=== PATIENT | male | born 1965 | race Caucasian/White ===

== ENCOUNTER → 2016-09-08 | Day surgery (SDC) | payer BC ==
[2016-09-06 17:20] VITALS: BMI 29.9
[~2016-09-08] MED LIST: BUPIVACAIN-EPI 0.25%-1:200,000 30 ML VIAL SQ ONE; DEXAMETHASONE SOD PHOSPHATE 10 MG/ML 1 ML VIAL IV ONE; FAMOTIDINE 20 MG/2 ML VIAL IV PRN; GLYCOPYRROLATE 0.2 MG/ML 2 ML VIAL ONE; HEPARIN SODIUM,PORCINE 5,000 UNIT/ML 1 ML VIAL SQ ONE; HYDROcodone/APAP 7.5-325MG 1 EACH TAB PO ONE; KETOROLAC 30 MG/ML 1 ML VIAL ONE; LACTATED RINGERS 1,000 ML IV ONE; LACTATED RINGERS 1,000 ML IV SCH; LIDOCAINE 1% 20 ML VIAL (10MG/ML) FOR IV START INTRADERMA PRN; LIDOCAINE 1% INJ 10MG/ML (20 ML MDV) ONE; MIDAZOLAM 2 MG/2 ML VIAL IV PRN; MIDAZOLAM 2 MG/2 ML VIAL ONE; NEOSTIGMINE 1 MG/ML 10 ML VIAL ONE; ONDANSETRON 4 MG/2 ML VIAL IVP ONE; PROPOFOL 10 MG/ML 20 ML VIAL IV ONE; ROCURONIUM BROMIDE 10 MG/ML 10 ML VIAL IV ONE; SCOPOLAMINE 1.5MG/72HR PATCH TRANSDERM ONE; SUCCINYLCHOLINE CHLORIDE 100 MG/5 ML SYR IV ONE; ceFAZolin 2 GM in SODIUM CHLORIDE 0.9% 100 ML IVPB ONE; fentaNYL (PF) 50 MCG/ML 2 ML AMP ONE
[2016-09-08 14:27] LABS: Glucose,Whole Blood 130 mg/dL (75-99)
--- NOTE | 2016-09-08 15:31 | P.GSHP ---
History of Present Illness H&P Date: 09/08/16 Chief Complaint: Incarcerated ventral hernia This a 51-year-old male referred from Dr. Hyde. Patient does today for laparoscopic robotic-assisted repair of incarcerated ventral hernia. - Constitutional Constitutional: Reports as per HPI Past Medical History Past Medical History: Diabetes Mellitus, Eye Disorder, Hyperlipidemia, Sleep Apnea/CPAP/BIPAP Additional Past Medical History / Comment(s): PRE-GLAUCOMA. HX DIVERTICULITIS. HX FX RT TIBIA. VENTRAL HERNIA CURRENTLY. USES CPAP. History of Any Multi-Drug Resistant Organisms: None Reported Past Surgical History: Hernia Repair Additional Past Surgical History / Comment(s): [facility] HERNIA. Past Anesthesia/Blood Transfusion Reactions: No Reported Reaction Past Psychological History: No Psychological Hx Reported Smoking Status: Never smoker Past Alcohol Use History: Rare Past Drug Use History: None Reported - Past Family History Mother Family Medical History: No Reported History Medications and Allergies Home Medications Medication Instructions Recorded Confirmed Type Insulin Degludec [Tresiba 56 unit SQ HS 01/21/16 09/08/16 History Flextouch U-200] Atorvastatin [Lipitor] 40 mg PO DAILY 09/06/16 09/08/16 History Eye Drop (Unsure Of Name) 1 drop BOTH EYES HS 09/06/16 History Allergies Allergy/AdvReac Type Severity Reaction Status Date / Time No Known Allergies Allergy Verified 09/06/16 17:02 Surgical - Exam Vital Signs Temp Pulse Resp BP Pulse Ox 98.2 F 80 16 125/70 97 09/08/16 14:12 09/08/16 14:12 09/08/16 14:12 09/08/16 14:12 09/08/16 14:12 - General well developed, no distress - Eyes PERRL - ENT normal pinna - Neck no masses - Respiratory normal expansion - Cardiovascular Rhythm: regular - Abdomen 5 cm incarcerated ventral hernia located above the umbilicus. Abdomen: soft, non tender Results - Labs Abnormal Lab Results - Last 24 Hours (Table) 09/08/16 Range/Units 14:18 POC Glucose (mg/dL) 130 H (75-99) mg/dL Assessment and Plan Plan: Incarcerated ventral hernia. We'll perform laparoscopic robotic assistance repair.
[2016-09-08 17:13] VITALS: TEMP 97.9
[2016-09-08] MEDS: HYDROmorphone 1 MG/ML 1 ML SYRINGE IVP PRN ×4 (17:25→18:07)
[2016-09-08 17:42] LABS: Glucose,Whole Blood 213 mg/dL (75-99)
[2016-09-08 18:18] VITALS: RESP 18
[2016-09-08 19:31] VITALS: BP 130/80; PULSE 72
--- NOTE | 2016-09-10 15:29 | P.OP ---
Date of Procedure: 09/10/16 Preoperative Diagnosis: Incarcerated ventral hernia Postoperative Diagnosis: Incarcerated ventral hernia Procedure(s) Performed: L laparoscopic robotic-assisted repair of incarcerated ventral hernia Partial greater omentectomy Anesthesia: ILEANA Surgeon: Andrez Rueda Estimated Blood Loss (ml): 5 Pathology: other (Omentum) Condition: stable Disposition: PACU Description of Procedure: Patient's placed on the operative table in supine position. He received general anesthesia. His abdomen was prepped and draped usual fashion. The abdomen was entered with a 5 mm blade less trocar in the left upper quadrant using direct visualization. The abdomen was then insufflated after adequate insufflation a 8 mm robotic trochars placed left lower quadrant and then a 12 mm trochars placed in the left lateral position and the original 5 mm trocar was exchanged for an 8 mm robotic trocar. The patient's placed the left side up position. He was then docked to the da Tashia robot. The incarcerated hernia was seen. As above the umbilicus. Using a hook cautery the incarcerated omentum was withdrawn from the hernia. A portion of nonviable omentum was dissected free. At this point using the OV lock suture of the actual defect was closed and then a piece of ventral light ST mesh was secured with 20 the lock suture to buttress the repair. The patient was then undocked the robot. The needles were retrieved. The fascia of the 12 mm trocar site was closed using 0 Vicryl suture. Skin was closed with 3-0 Vicryl suture. Skin was closed with Dermabond. Patient top she will was sent to recovery in stable condition.
== END ==
LOC: OR 13:59
PROVIDERS: ATTEND Surgery
DX: K43.6 Other and unspecified ventral hernia with obstruction, without gangrene (principal); E11.9 Type 2 diabetes mellitus without complications; E78.5 Hyperlipidemia, unspecified; G47.30 Sleep apnea, unspecified; H40.009 Preglaucoma, unspecified, unspecified eye; Z79.4 Long term (current) use of insulin; Z79.899 Other long term (current) drug therapy
CPT/HCPCS: 49653; C1781; J2250; J1644; J1100; J2710; J0690; J2405; J3010; J1885; J1170; J0330; J2704; 88305

== ENCOUNTER → 2016-10-21 | Outpatient (CLI) | payer BC ==
--- NOTE | 2016-10-21 20:07 | PN ---
51-year-old gentleman who has been followed in the sleep center for treatment of obstructive sleep apnea-hypopnea syndrome. Recently patient had diagnostic sleep study which was done as a home sleep apnea test and CPAP titration. I discussed results of sleep studies with the patient in detail. Diagnostic sleep study showed apnea-hypopnea index 33.1 with oxygen desaturation to 83%. Recommended CPAP pressure by results of CPAP titration was 11 cm of water. Patient started to use his CPAP equipment without any significant problem related to mask or machine, feels much better during the sleep and during the day. I checked his CPAP unit which he brought with him. CPAP pressure is 11 cm water. Usage is 28 out of 30 nights for more than 4 hours, which is great. Leak is up to 35 L/min, which is borderline. Apnea-hypopnea index reading is 2.9, which is good numbers. [place] Sleepiness Scale today is one, RR. Patient sometimes opens his mouth. He is nasal pillow mask. MEDICATIONS: 1. Insulin. 2. Atorvastatin. During physical exam, the patient in no distress. BP 117/68, HR 95, RR is 18. Weight 257.4. Temperature 97.9. Oxygen saturation at room air 95%. HEENT: PERRLA, EOMI oropharynx low position of soft palate. Neck: Supple. No JVD. Thyroid is not palpable. LUNGS: Clear to percussion and to auscultation. Good air exchange. No wheezing or rhonchi. HEART: S1, S2 regular. No murmurs, gallops, or rubs. ABDOMEN: Obese. Soft and nontender. Bowel sounds are present. No organomegaly appreciated. EXTREMITIES: No clubbing or cyanosis. PROGRAMS MANAGER: Awake, alert, and oriented x3. Cranial nerves 2 to 7 intact. There is no fasciculation or atrophy noted. No focal deficits observed. IMPRESSION: 1. Severe obstructive sleep apnea-hypopnea syndrome on control with CPAP at 11 cm of water. Patient demonstrated great compliance with treatment, benefiting from treatment. 2. Obesity. 3. Diabetes mellitus. 4. Hyperlipidemia. 5. Status post surgical treatment of umbilical hernia. PLAN: 1. Continue treatment with CPAP every night. 2. Chin strap. 3. Losing weight. 4. Sleep hygiene with regular time in bed for at least 8 hours. 5. No driving if feeling any sleepiness. 6. Follow-up visit in 10 months or earlier if patient has any problems. Thank you very much for allowing me to participate in the management of your patient. Sincerely, Markel Cote MD, PhD, FAASM. Diplomat of [employer], Sleep Medicine Board by [employer] Officer of [facility] [place]
== END | disposition home or self-care (01) ==
LOC: SLEEP 15:02
PROVIDERS: ATTEND Internal Medicine
DX: G47.33 Obstructive sleep apnea (adult) (pediatric) (principal); E66.9 Obesity, unspecified; E11.9 Type 2 diabetes mellitus without complications; E78.5 Hyperlipidemia, unspecified; Z79.4 Long term (current) use of insulin; Z98.890 Other specified postprocedural states

== ENCOUNTER → 2017-11-03 | Outpatient (CLI) | payer BC ==
--- NOTE | 2017-11-03 12:33 | PN ---
PROGRESS NOTE DATE OF SERVICE: 11/03/2017 A 52-year-old gentleman who has been followed in the Sleep Center for treatment of obstructive sleep apnea-hypopnea syndrome. Patient successfully continued to use his CPAP equipment every night without significant problems. No snoring with the machine. [place] Sleepiness Scale is only 3. I checked his CPAP unit. Usage is 100% of the nights and 27 nights out of 30 nights more than 4 hours. Average usage 6.0 hours. Pressure is 11 cm of water. Apnea- hypopnea index for the last month only 2.1, which is perfect. Leak is borderline 36 L/minute. No dry mouth in the morning. MEDICATIONS: Tresiba, atorvastatin, metformin. PHYSICAL EXAM: Patient in no distress. BP 124/70, HR 96, RR 18, height 62-1/2, weight 261.4. Patient increased his weight of 4 pounds since previous visit. Temperature 98.5, oxygen saturation at room air 95%. Body mass index 33.0. OROPHARYNX: Low position of soft palate. ABDOMEN: Slightly obese. Neck Supple, no JVD. Thyroid is not palpable. LUNGS Clear to percussion and to auscultation. Good air exchange. No wheezing or rhonchi. HEART S1, S2 regular. No murmurs, gallops, or rubs. EXTREMITIES No clubbing or cyanosis. FOURDRINIER OPERATOR Awake, alert, and oriented X3. Cranial nerves 2 to 7 intact. There is no fasciculation or atrophy. noted. No focal deficits observed. IMPRESSION: 1. Obstructive sleep apnea-hypopnea syndrome on control with CPAP at 11 cm of water. Patient demonstrated great compliance with treatment, benefitting from treatment. 2. Mild obesity, body mass index 33.0. Patient increased his weight several pounds since previous visit. 3. Hyperlipidemia. 4. Diabetes mellitus. 5. Status post surgery in the past for umbilical hernia. PLAN: 1. Patient will continue to use his CPAP equipment every night for the whole night. 2. Prescription for all necessary CPAP supplies including mask, tube, filters. I encouraged patient to get new nasal pillow mask as much as often as possible following insurance guidelines. 3. Losing weight. 4. No driving if feeling any sleepiness. 5. Followup visit in 1 year or earlier if patient has any problems. Thank you very much for allowing me to participate in the management of your patient. Sincerely, Markel Cote MD, PhD, FAASM Diplomat of [employer] General Administrator of [facility] [place] STEFFANIE / LUIS E: [phone] /
== END | disposition home or self-care (01) ==
LOC: SLEEP 11:18
PROVIDERS: ATTEND Internal Medicine
DX: G47.33 Obstructive sleep apnea (adult) (pediatric) (principal); E66.9 Obesity, unspecified; E78.5 Hyperlipidemia, unspecified; E11.9 Type 2 diabetes mellitus without complications; Z99.89 Dependence on other enabling machines and devices; Z68.33 Body mass index [BMI] 33.0-33.9, adult

== ENCOUNTER 2018-11-17 07:00 | Day surgery (SDC) | payer BC ==
[2018-11-15 08:44] VITALS: BMI 31.2
[~2018-11-17 07:00] MED LIST changes: -BUPIVACAIN-EPI 0.25%-1:200,000 30 ML VIAL SQ ONE; -DEXAMETHASONE SOD PHOSPHATE 10 MG/ML 1 ML VIAL IV ONE; -FAMOTIDINE 20 MG/2 ML VIAL IV PRN; -GLYCOPYRROLATE 0.2 MG/ML 2 ML VIAL ONE; -HEPARIN SODIUM,PORCINE 5,000 UNIT/ML 1 ML VIAL SQ ONE; -HYDROcodone/APAP 7.5-325MG 1 EACH TAB PO ONE; -KETOROLAC 30 MG/ML 1 ML VIAL ONE; -LACTATED RINGERS 1,000 ML IV ONE; -LIDOCAINE 1% 20 ML VIAL (10MG/ML) FOR IV START INTRADERMA PRN; -LIDOCAINE 1% INJ 10MG/ML (20 ML MDV) ONE; -MIDAZOLAM 2 MG/2 ML VIAL IV PRN; -MIDAZOLAM 2 MG/2 ML VIAL ONE; -NEOSTIGMINE 1 MG/ML 10 ML VIAL ONE; -ONDANSETRON 4 MG/2 ML VIAL IVP ONE; -PROPOFOL 10 MG/ML 20 ML VIAL IV ONE; -ROCURONIUM BROMIDE 10 MG/ML 10 ML VIAL IV ONE; -SCOPOLAMINE 1.5MG/72HR PATCH TRANSDERM ONE; -SUCCINYLCHOLINE CHLORIDE 100 MG/5 ML SYR IV ONE; -ceFAZolin 2 GM in SODIUM CHLORIDE 0.9% 100 ML IVPB ONE; -fentaNYL (PF) 50 MCG/ML 2 ML AMP ONE
[2018-11-17 07:23] VITALS: TEMP 98.3
[2018-11-17 07:36] LABS: Glucose,Whole Blood 142 mg/dL (75-99)
[2018-11-17] MEDS ORDERED: KETOROLAC 30 MG/ML 1 ML VIAL ONE (07:37)
[2018-11-17] MEDS ORDERED: PROPOFOL 10 MG/ML 20 ML VIAL IV ONE (07:37)
--- NOTE | 2018-11-17 07:42 | P.GSHP ---
History of Present Illness H&P Date: 11/17/18 Chief Complaint: Colon cancer screening Patient today for colonoscopy. Last colonoscopy 7-8 years ago. No bowel complaints. History of diverticulitis in the past. No family history of colon cancer. Past Medical History Past Medical History: Diabetes Mellitus, Eye Disorder, Hyperlipidemia, Hypertension, Sleep Apnea/CPAP/BIPAP Additional Past Medical History / Comment(s): PRE-GLAUCOMA. HX DIVERTICULITIS. HX FX RT TIBIA. VENTRAL HERNIA CURRENTLY. USES CPAP. History of Any Multi-Drug Resistant Organisms: None Reported Past Surgical History: Hernia Repair Additional Past Surgical History / Comment(s): [facility] HERNIA. COLONOSCOPY Past Anesthesia/Blood Transfusion Reactions: No Reported Reaction Smoking Status: Never smoker - Past Family History Mother Family Medical History: No Reported History Medications and Allergies Home Medications Medication Instructions Recorded Confirmed Type Atorvastatin [Lipitor] 40 mg PO HS 09/06/16 11/17/18 History Dulaglutide [Trulicity] 0.75 mg SQ ROBERTSON 11/15/18 11/17/18 History Insulin Glargine,Hum.rec.anlog 65 unit SQ HS 11/15/18 11/17/18 History [Toujeo Max Solostar] Lisinopril [Zestril] 2.5 mg PO HS 11/15/18 11/17/18 History metFORMIN HCL [Glucophage Xr] 1,000 mg PO AC-SUPPER 11/15/18 11/17/18 History Allergies Allergy/AdvReac Type Severity Reaction Status Date / Time No Known Allergies Allergy Verified 11/15/18 08:38 Surgical - Exam Vital Signs Temp Pulse Resp BP Pulse Ox 98.3 F 89 20 133/84 96 11/17/18 07:10 11/17/18 07:10 11/17/18 07:10 11/17/18 07:10 11/17/18 07:10 Physical exam: General: Well-developed, well-nourished HEENT: Normocephalic, sclerae nonicteric Abdomen: Nontender, nondistended Extremities: No edema Neuro: Alert and oriented Results - Labs Abnormal Lab Results - Last 24 Hours (Table) 11/17/18 Range/Units 07:20 POC Glucose (mg/dL) 142 H (75-99) mg/dL Assessment and Plan (1) Colon cancer screening Narrative/Plan: Will proceed with colonoscopy at this time Current Visit: Yes Status: Acute Code(s): Z12.11 - ENCOUNTER FOR SCREENING FOR MALIGNANT NEOPLASM OF COLON SNOMED Code(s): 398435190
[2018-11-17] MEDS ORDERED: SODIUM CHLORIDE 0.9% 500 ML 500 ML IV ONE (08:19)
--- NOTE | 2018-11-17 08:20 | P.PCN ---
Date of Procedure: 11/17/18 Procedure(s) Performed: PREOPERATIVE DIAGNOSIS: Colon cancer screening POSTOPERATIVE DIAGNOSIS: Diverticulosis, hypertrophied anal papilla PROCEDURE: Colonoscopy and anoscopy with snare removal of hypertrophied anal papilla ANESTHESIA: MAC SURGEON: Geraldo Christensen M.D. SPECIMENS: Hypertrophied anal papilla ENDOSCOPIC PROCEDURE: The patient was placed on the endoscopy table in the left decubitus position. The Olympus colonoscope was inserted into the anus and passed under direct visualization to the base of the cecum. The appendiceal orifice was visualized. From that point the scope was slowly withdrawn inspecting all surfaces carefully. There were no neoplastic inflammatory or polypoid lesions throughout the cecum, ascending, transverse, or descending colon. The sigmoid colon there was extensive diverticulosis present. One of the diverticulum initially had the appearance of a polyp right at the mouth of the diverticulum. The snare with cautery was used to try to obtain a sample of this however this appeared to be simply a small piece of what likely represented granulation tissue. No specimen was identified in our container. The remainder of the sigmoid and rectum appeared normal. Just at the junction with the anus there was what appeared to represent a large hypertrophied anal papilla. This was removed using the snare with cautery technique. The anoscope was utilized for this portion of the procedure. No additional abnormalities were identified on rectal examination. The patient was taken to the recovery room in stable condition per anesthesia guidelines. RECOMMENDATIONS: Await biopsy results. Continue diverticular diet. Follow-up colonoscopy in 5-10 years.
[2018-11-17 08:26] VITALS: RESP 16
[2018-11-17 08:54] VITALS: BP 107/70; PULSE 74
== END 2018-11-17 09:14 | disposition home or self-care (01) ==
LOC: ORWHC2ENDO 07:00
PROVIDERS: ATTEND Surgery
DX: Z12.11 Encounter for screening for malignant neoplasm of colon (principal); K57.30 Diverticulosis of large intestine without perforation or abscess without bleeding; K62.89 Other specified diseases of anus and rectum; K62.0 Anal polyp; I10 Essential (primary) hypertension; E78.5 Hyperlipidemia, unspecified; E11.9 Type 2 diabetes mellitus without complications; H40.009 Preglaucoma, unspecified, unspecified eye; G47.33 Obstructive sleep apnea (adult) (pediatric); Z99.89 Dependence on other enabling machines and devices; Z79.4 Long term (current) use of insulin; Z79.899 Other long term (current) drug therapy
CPT/HCPCS: 45385; 88304; J1885; J2704

== ENCOUNTER → 2019-01-16 | Outpatient (CLI) | payer BC ==
--- NOTE | 2019-01-16 11:45 | XR ---
EXAMINATION TYPE: XR shoulder complete RT DATE OF EXAM: 01/16/2019 CLINICAL HISTORY: Nontraumatic right shoulder injury TECHNIQUE: Three views of the right shoulder are obtained. COMPARISON: None. FINDINGS: There is no acute fracture/dislocation evident in the right shoulder. The acromioclavicul ar and glenohumeral joint spaces appear within normal limits. Small osseous cyst is seen of the humer al head with punctate calcifications at the insertion of the rotator cuff. The visualized ribs are in tact and unremarkable. IMPRESSION: There is no acute fracture or dislocation in the right shoulder. Calcific tendinosis of the insertional fibers of the rotator cuff.
--- NOTE | 2019-01-16 11:48 | XR ---
EXAMINATION TYPE: XR cervical spine limited DATE OF EXAM: 01/16/2019 TECHNIQUE: Frontal, lateral and open mouth view of the cervical spine are obtained. HISTORY: M54.12 Radiculopathy COMPARISON: None FINDINGS: The cervical spine is visualized in its entirety from C1 thru the top of T1 level, it is s atisfactory in alignment without evidence of acute fracture or dislocation. There is straightening of usual cervical lordosis. Small anterior osteophytes are seen at C5-C6, C6-C7, and C7-T1. The pre-martha tebral soft tissue appears within normal limits. The C1-C2 articulation is within normal limits on t he open mouth view. The oblique images are within normal limits. Straightening of usual cervical sarah dosis is present. IMPRESSION: 1. No acute fracture or malalignment is seen in the cervical spine. 2. Mild multilevel degenerative disc disease from C5 through T1. 3. Straightening of the usual cervical lordosis that may be on the basis of muscular sprain/spasm or patient positioning.
== END | disposition home or self-care (01) ==
LOC: RADXRMAIN 10:27
PROVIDERS: ATTEND Family Medicine
DX: M50.122 Cervical disc disorder at C5-C6 level with radiculopathy (principal); M40.40 Postural lordosis, site unspecified; M25.511 Pain in right shoulder; M89.8X1 Other specified disorders of bone, shoulder
CPT/HCPCS: 72040

== ENCOUNTER → 2020-04-01 | Outpatient (CLI) | payer BC | END | disposition home or self-care (01) | LOC: LABWHC1 15:55 | PROVIDERS: ATTEND Family Medicine | DX: Z20.828 Contact with and (suspected) exposure to other viral communicable diseases (principal) | CPT/HCPCS: U0003; C9803 ==